=== PATIENT | female | born 1995 | race African-American/Black ===

== ENCOUNTER 2016-07-28 20:15 | Emergency (ER) | payer BC, MEDICAID ==
[~2016-07-28] VITALS: Ht 165.1 cm; Wt 50.0 kg
[~2016-07-28 20:15] MED LIST: PREN-88 PO
[2016-07-28] MEDS ORDERED: ONDANSETRON HCL 4MG/2ML VIAL IV ONE (20:45)
[2016-07-28] MEDS ORDERED: MORPHINE SULFATE 4 MG/ML CPJ (NOT FOR IM USE) IV ONE (20:45)
[2016-07-28 21:16] LABS: HCG SCREEN NEGATIVE
[2016-07-28] MEDS ORDERED: PROPOFOL 200MG/20ML VIAL IV ONE ×2 (22:35→22:48)
[2016-07-29 00:43] VITALS: BP 110/61
[2016-07-29] MEDS ORDERED: PROPOFOL 200MG/20ML VIAL IV ONE (01:00)
== END 2016-07-29 01:08 | disposition home or self-care (01) ==
LOC: ER 21:08
DX: S43.025A Posterior dislocation of left humerus, initial encounter (principal); F12.10 Cannabis abuse, uncomplicated; X58.XXXA Exposure to other specified factors, initial encounter; Y93.89 Activity, other specified; Y92.89 Other specified places as the place of occurrence of the external cause; Y99.8 Other external cause status
CPT/HCPCS: 23650; 73030; 84703; 96374; 96375; 99152; 99285; J2270; J2405; J7030; Z7610; J2704; L3670

== ENCOUNTER 2018-09-02 12:47 | Emergency (ER) | payer BC, MEDICAID ==
[~2018-09-02] VITALS: Ht 162.6 cm; Wt 60.0 kg
[2018-09-02] MEDS ORDERED: SODIUM CHLORIDE 0.9% 1,000 ML IV ONE (13:16)
[2018-09-02] MEDS ORDERED: MORPHINE SULFATE 4 MG/ML CPJ (NOT FOR IM USE) IV STA (13:16)
[2018-09-02] MEDS ORDERED: ONDANSETRON HCL 4MG/2ML INJ IV STA (13:16)
[2018-09-02] MEDS ORDERED: LORAZEPAM 2MG/ML CPJ IV ONE (13:30)
[2018-09-02] MEDS ORDERED: KETAMINE HCL 50 MG/ML 10ML IV ONE (15:15)
[2018-09-02] MEDS ORDERED: PROPOFOL 200MG/20ML VIAL IV ONE (15:15)
[2018-09-02] MEDS ORDERED: FENTANYL CITRATE/PF 50MCG/ML 2ML VIAL IV ONE (15:15)
[2018-09-02 17:51] VITALS: BP 115/67
[2018-09-02] MEDS ORDERED: ONDANSETRON 4MG ODT PO ONE (19:30)
== END 2018-09-02 19:25 | disposition home or self-care (01) ==
LOC: ER 12:47
DX: S43.005A Unspecified dislocation of left shoulder joint, initial encounter (principal); Z79.899 Other long term (current) drug therapy; X58.XXXA Exposure to other specified factors, initial encounter; Y93.89 Activity, other specified; Y92.89 Other specified places as the place of occurrence of the external cause; Y99.8 Other external cause status
CPT/HCPCS: 23650; 73030; 96374; 96375; 99285; J2060; J2270; J2405; J2704; J3010; J3490; J7030; Z7610; L3670